=== PATIENT | female | born 1935 | race Caucasian/White ===

== ENCOUNTER 2024-01-17 22:22 | Emergency (ER) | payer MEDICARE, SELFPAY ==
[2024-01-17 22:06] VITALS: BMI 29.2
--- NOTE | 2024-01-17 22:07 | ECG_ITS ---
APPROVED REPORT Exam: Resting ECG HR:87 bpm ECG Measurements Heart Rate 87 AXES CA 185 P 56 QRSd 85 QRS -23 QT 334 T 47 QTc 379 Conclusion SINUS RHYTHM BORDERLINE LEFT AXIS DEVIATION [QRS AXIS < -20] VOLTAGE CRITERIA FOR LVH [MEETS CRITERIA IN ONE OF: R(aVL), S(V1), R(V5), R(V5/V6)+S(V1)] ABNORMAL ECG Electronically signed by : FREDI CALDERÓN, 01/17/2024 23:23:22
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
--- NOTE | 2024-01-17 22:10 | CT_ITS ---
PROCEDURE INFORMATION: Exam: CT Cervical Spine Without Contrast Exam date and time: 01/17/2024 11:03 PM Age: 88 years old Clinical indication: Injury or trauma; Additional info: Trauma, critical injury suspected TECHNIQUE: Imaging protocol: Computed tomography of the cervical spine without contrast. Radiation optimization: All CT scans at this facility use at least one of these dose optimization techniques: automated exposure control; mA and/or kV adjustment per patient size (includes targeted exams where dose is matched to clinical indication); or iterative reconstruction. COMPARISON: CT HEAD/BRAIN WO CON 01/17/2024 11:01 PM FINDINGS: Bones: There is diffuse osseous demineralization. The cervical spine shows relatively preserved alignment of the vertebral bodies with no evidence of acute fractures or dislocations. However, age-related degenerative changes are observed, including mild disc space narrowing and osteophyte formation at multiple levels. These findings are consistent with age related degenerative disease. Dental: There is dental amalgam which causes streak artifact and mildly limits evaluation of the oral cavity. Lungs: Lung apices are normal. Vasculature: There are atherosclerotic calcifications of the carotid bulbs bilaterally. Soft tissues: Unremarkable. IMPRESSION: Multilevel degenerative change without acute injury identified.
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
--- NOTE | 2024-01-17 22:10 | CT_ITS ---
PROCEDURE INFORMATION: Exam: CTA Neck With Contrast Exam date and time: 01/17/2024 11:15 PM Age: 88 years old Clinical indication: Injury or trauma; Additional info: Trauma, critical injury suspected TECHNIQUE: Imaging protocol: Computed tomographic angiography of the neck with contrast. Exam focused on the cervical segments of the vasculature. 3D rendering (Not supervised by radiologist): MIP and/or 3D reconstructed images were created by the technologist. Radiation optimization: All CT scans at this facility use at least one of these dose optimization techniques: automated exposure control; mA and/or kV adjustment per patient size (includes targeted exams where dose is matched to clinical indication); or iterative reconstruction. Contrast material: ISOVUE; Contrast volume: 90 ml; Contrast route: INTRAVENOUS (IV); COMPARISON: 1. CT CERVICAL SPINE WO CON 01/17/2024 11:[address] ANGIO HEAD 01/17/2024 11:[address] HEAD/BRAIN WO CON 01/17/2024 11:01 PM FINDINGS: Right common carotid artery: No stenosis. No dissection or occlusion. Right internal carotid artery: No stenosis of the extracranial segment. No dissection or occlusion. Right external carotid artery: No occlusion or stenosis of the origin. Left common carotid artery: No stenosis. No dissection or occlusion. Left internal carotid artery: No stenosis of the extracranial segment. No dissection or occlusion. Left external carotid artery: No occlusion or stenosis of the origin. Right vertebral artery: No stenosis. No dissection or occlusion. Left vertebral artery: No stenosis. No dissection or occlusion. Soft tissues: Normal. No significant soft tissue swelling. Bones/joints: No acute fracture. IMPRESSION: 1. No stenosis or occlusion. 2. No acute injury of the intracranial vasculature. REFERENCES: NASCET CRITERIA. The degree of stenosis in the cervical segment of the internal carotid artery is based on NASCET criteria. Normal is no stenosis. Mild is less than 50% stenosis. Moderate is 50-69% stenosis. Severe is 70% to 99% stenosis. Total occlusion is no detectable patent lumen.
--- NOTE | 2024-01-17 22:19 | PC.NURSE ---
Pure Wick placed for patient, per Dr. Florez.
[2024-01-17 22:22] LABS: Basophils # 0.1 K/mm3 (0-0.2); Basophils % 0.6 % (0.1-2.0); Eosinophils # 0.1 K/mm3 (0.0-0.4); Eosinophils % 0.5 % (0.1-12.0); Hematocrit 40.7 % (37.0-47.0); Hemoglobin 12.8 g/dL (12.2-16.2); Lymphocytes # 3.3 K/mm3 (0.7-4.5); Lymphocytes % 32.4 % (10-50); Mean Corpuscular HGB Conc 31.4 g/dL (31.8-35.4); Mean Corpuscular Hemoglobin 30.7 pg (27.0-31.2); Mean Corpuscular Volume 97.8 fl (81-99); Mean Platelet Volume 7.9 fl (7.4-10.4); Monocytes # 0.5 K/mm3 (0.1-1.0); Monocytes % 4.8 % (1.7-9.3); Neutrophils # 6.3 K/mm3 (1.8-7.8); Neutrophils % 61.6 % (37.0-80.0); Platelet Count 381 K/mm3 (142-424); Red Blood Count 4.16 M/mm3 (4.20-5.40); Red Cell Distribution Width 14.4 % (11.5-17.5); White Blood Count 10.1 K/mm3 (4.8-10.8)
[2024-01-17 22:24] VITALS: BP 180/95; PULSE 98; RESP 20; TEMP 36.9; O2SAT 98
[2024-01-17 22:30] VITALS: BP 176/95; PULSE 82; O2SAT 97
[2024-01-17 22:33] LABS: Lactate Venous 1.8 mmol/L (0.4-2.0); VBG Base Excess 1.1 mmol/L (-2.4-2.3); VBG HCO3 26.3 mmol/L (23-30); VBG Oxygen Saturation 77.8 % (50-70); VBG PCO2 45.5 mmol/L (35-51); VBG PH 7.38 mmol/L (7.31-7.41); VBG PO2 43.3 mmol/L (28-40); VBG Total CO2 27.6 mmol/L (23-27)
[2024-01-17 22:35] VITALS: BP 201/91; PULSE 85; O2SAT 97
[2024-01-17 22:35] LABS: Chloride 103 mmol/L (98-107)
[2024-01-17 22:36] LABS: Potassium 3.9 mmoL/L (3.5-5.1); Sodium 139 mmol/L (136-145)
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
[2024-01-17 22:38] LABS: Alanine Aminotransferase 32 U/L (12-78); Albumin Level 4.8 g/dl (3.5-5.0); Albumin/Globulin Ratio 1.3 (1.1-1.8); Alkaline Phosphatase 64 U/L (38-126); Anion Gap 11.9 mEq/L (5-15); Aspartate Amino Transferase 51 U/L (14-36); Bilirubin,Total 0.5 mg/dl (0.2-1.3); Blood Urea Nitrogen 22 mg/dl (7-17); Calcium 10.9 mg/dl (8.4-10.2); Carbon Dioxide 28 mmol/L (22.0-30.0); Creatinine Clearance Estimated 39 mL/min (50-200); Estimated Glomerular Filt Rate 47 ml/min (>60); GFR (African American) 57 ML/MIN (>60); Globulin 3.6 g/dL (1.3-3.2); Glucose 124 mg/dl (74-100); Lipase 208 U/L (23-300); Total Protein,Serum 8.4 g/dl (6.3-8.2)
[2024-01-17 22:39] LABS: Activated Partial Thrombo Time 25.4 seconds (22.8-30.6); INR 0.97 (0.9-1.1); Prothrombin Time 10.5 seconds (10.1-12.5)
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
[2024-01-17 22:40] VITALS: BP 201/87; PULSE 83; O2SAT 96
[2024-01-17] MEDS: ACETAMINOPHEN 1,000MG/100ML VIAL 1000 MG IV (22:41)
[2024-01-17] MEDS: RINGERS SOLUTION,LACTATED 500 ML 999 ML IV (22:41)
[2024-01-17 22:45] VITALS: BP 192/82; PULSE 84; O2SAT 96
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
[2024-01-17 22:50] VITALS: BP 198/87; PULSE 88; O2SAT 96
[2024-01-17 22:52] LABS: Troponin I < 0.01 ng/ml (0.00-0.034)
--- NOTE | 2024-01-17 22:53 | PC.NURSE ---
Patient to CT scan.
[2024-01-17] MEDS: 0.9 % SODIUM CHLORIDE 50 ML VIAL IV (23:29)
[2024-01-17] MEDS: IOPAMIDOL-370 (76%);100ML BOTTLE 180 ML IV (23:29)
[2024-01-17] MEDS: SODIUM CHLORIDE 0.9% 10ML SYR (RAD ONLY) 10 ML IV (23:29)
[2024-01-17] MEDS: TET/DIPHTH/PERT-ADULT 0.5ML SYRINGE 0.5 ML IM (23:54)
--- NOTE | 2024-01-18 00:41 | PC.NURSE ---
call placed to [facility]. spoke with dr cannon.
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
[2024-01-18 00:53] VITALS: BP 184/87; PULSE 80; RESP 18; TEMP 36.9; O2SAT 98
== END 2024-01-18 01:24 | disposition other institution (70) ==
PROVIDERS: Emergency Medicine; Emergency Provider Emergency Medicine
DX: R07.9 Chest pain, unspecified (principal); S22.22XA Fracture of body of sternum, initial encounter for closed fracture; I10 Essential (primary) hypertension; V49.50XA Passenger injured in collision with unspecified motor vehicles in traffic accident, initial encounter; Y92.410 Unspecified street and highway as the place of occurrence of the external cause; Z23 Encounter for immunization
CPT/HCPCS: 70450; 70496; 70498; 71275; 72125; 72128; 72131; 72192; 73060; 73080; 73090; 73130; 73562; 73590; 73610; 74174; 80053; 82803; 83690; 84484; 85025; 85610; 85730; 90471; 90715; 93005; 96374; 99285; J0131; Q9967